=== PATIENT | female | born 1990 ===

== ENCOUNTER 2022-02-06 08:52 | Outpatient (CLI) | payer OTHER | END 2022-02-06 08:53 | disposition home or self-care (01) | LOC: RX STUDY 08:52 | PROVIDERS: ATTEND Specialist | DX: O00.109 Unspecified tubal pregnancy without intrauterine pregnancy (principal) ==

== ENCOUNTER 2024-03-23 16:23 | Inpatient (IN) | payer OTHER ==
[~2024-03-23] VITALS: Ht 162.6 cm; Wt 88.5 kg
[2024-04-09] MEDS ORDERED: PRENATAL CAPLE1 EAC1 PO (06:48)
[2024-04-09] MEDS ORDERED: PEPCID AC20 MG PO (06:48)
[2024-04-09 09:56] VITALS: BP 120/72
[2024-04-09] MEDS ORDERED: RINGERS SOLUTION,LACTATED 1,000 ML IV SCH (10:30)
[2024-04-09 11:25] LABS: HEMATOCRIT 33.4 % (36.0-45.00); HEMOGLOBIN 11.4 g/dL (12.0-15.00); MEAN CELL VOLUME 93.5 fL (80.00-100.00); MEAN CORPUSCULAR HGB CONC 34.2 g/dl (32.0-36.0); PLATELET COUNT 159 K/uL (150-450); RED BLOOD COUNT 3.57 M/uL (4.00-6.00)
[2024-04-09 11:31] VITALS: BP 114/69
[2024-04-09 11:46] LABS: INR < 0.93; PARTIAL THROMBOPLASTIN TIME 26.6 SECONDS (22.0-34.0); PROTHROMBIN TIME 9.8 SECONDS (9.0-11.5)
[2024-04-09 11:59] LABS: ALBUMIN 2.8 gm/dL (3.4-5.0); BILIRUBIN TOTAL 0.28 mg/dL (0.3-1.2); CALCIUM 8.9 mg/dL (8.5-10.1); CREATININE SERUM 0.54 mg/dL (0.55-1.02); GFR 129.23; GLOBULINA 3.7 G/DL (2.4-3.5); TOTAL PROTEIN 6.5 gm/dL (6.4-8.2)
[2024-04-09 15:44] VITALS: BP 126/78
[2024-04-09 19:29] VITALS: BP 114/68
[2024-04-09 23:15] VITALS: BP 116/69
[2024-04-10] VITALS (10 sets, daily range): BP systolic 111–131; BP diastolic 51–81
[2024-04-10] MEDS ORDERED: OXYTOCIN 500 ML IV ONE (08:00)
[2024-04-10] MEDS ORDERED: MORPHINE SULFATE 4 MG/ML CARTRIDGE IV PRN (13:45)
[2024-04-10] MEDS ORDERED: CHLORHEXIDINE GLUCONATE 120 ML BOTTLE TP SCH (21:00)
[2024-04-10] MEDS ORDERED: OXYTOCIN 1,000 ML IV ONE (21:00)
[2024-04-10] MEDS ORDERED: IBUprofen 400 MG TABLET PO PRN (21:00)
[2024-04-10] MEDS ORDERED: ERYTHROMYCIN BASE OPHT 1GM EACH TUBE OP ONE (22:15)
[2024-04-10] MEDS ORDERED: LIDOCAINE HCL 1% 10ML VIAL IJ ONE (22:15)
[2024-04-11 00:30] VITALS: BP 109/74
[2024-04-11 06:59] LABS: HEMATOCRIT 29.4 % (36.0-45.00); HEMOGLOBIN 10.2 g/dL (12.0-15.00); MEAN CELL VOLUME 92.5 fL (80.00-100.00); MEAN CORPUSCULAR HEMOGLOBIN 32.3 pg (27.00-32.0); MEAN CORPUSCULAR HGB CONC 34.9 g/dl (32.0-36.0); PLATELET COUNT 149 K/uL (150-450); RED BLOOD COUNT 3.17 M/uL (4.00-6.00)
[2024-04-11 08:46] VITALS: BP 100/60
[2024-04-11] MEDS ORDERED: DOCUSATE SODIUM 100MG CAP PO SCH (09:00)
[2024-04-11 16:00] VITALS: BP 106/70
[2024-04-12] VITALS: BP 107/72
[2024-04-12 08:00] VITALS: BP 109/68
== END 2024-04-12 16:12 | disposition home or self-care (01) | DRG 807 ==
LOC: OB/GYN 04-05 13:43 → LDR 04-09 10:00 → OB/GYN 04-10 21:14
PROVIDERS: Obstetrics & Gynecology Gynecology; ADMIT Obstetrics & Gynecology; ATTEND Obstetrics & Gynecology
PROC: 4A1HXCZ Monitoring of Products of Conception, Cardiac Rate, External Approach (ICD-10-PCS; 2024-04-09)
PROC: 10E0XZZ Delivery of Products of Conception, External Approach (ICD-10-PCS; principal; 2024-04-10)
PROC: 0UQG7ZZ Repair Vagina, Via Natural or Artificial Opening (ICD-10-PCS; 2024-04-10)
PROC: 0UQMXZZ Repair Vulva, External Approach (ICD-10-PCS; 2024-04-10)
DX: O71.4 Obstetric high vaginal laceration alone (principal); O71.82 Other specified trauma to perineum and vulva; Z37.0 Single live birth; Z3A.40 40 weeks gestation of pregnancy; Z20.822 Contact with and (suspected) exposure to COVID-19

== ENCOUNTER 2024-04-04 12:12 | Outpatient (CLI) | payer OTHER | END 2024-04-04 13:28 | disposition home or self-care (01) | LOC: NST 12:12 | PROVIDERS: ATTEND Obstetrics & Gynecology | DX: Z34.83 Encounter for supervision of other normal pregnancy, third trimester (principal) ==

== ENCOUNTER 2024-04-09 06:31 | Outpatient (CLI) | payer OTHER ==
[2024-04-09 05:56] VITALS: BP 124/70
[2024-04-09] MEDS ORDERED: PEPCID AC20 MG PO (06:48)
[2024-04-09] MEDS ORDERED: PRENATAL CAPLE1 EAC1 PO (06:48)
[2024-04-09 07:41] VITALS: BP 120/72
== END 2024-04-09 09:59 | disposition still patient (30) ==
LOC: OBS/DEL 06:31 → LDR 06:44 → OBS/DEL 07:37
PROVIDERS: ATTEND Obstetrics & Gynecology
DX: O26.893 Other specified pregnancy related conditions, third trimester (principal); Z3A.40 40 weeks gestation of pregnancy